=== PATIENT | male | born 1975 | race Two or more races ===

== ENCOUNTER 2024-10-05 13:17 | Emergency (ER) | payer OTHER ==
[~2024-10-05] VITALS: Ht 188 cm; Wt 126.1 kg
[2024-10-05] MEDS ORDERED: DEXAMETHASONE SODIUM PHOSPHATE 4 MG/ML VIAL IM ONE (17:00)
== END 2024-10-05 17:01 | disposition home or self-care (01) ==
LOC: ER 13:18
DX: R21 Rash and other nonspecific skin eruption (principal)